=== PATIENT | female | born 1950 | race American Indian/Alaskan Native ===

== ENCOUNTER 2018-02-08 22:16 | Emergency (ER) | payer MEDICARE ==
[2018-02-08 22:33] VITALS: TEMP 97.9
--- NOTE | 2018-02-08 23:12 | ED PDOC ---
Arrival/HPI - General Chief Complaint: Substance Abuse Time Seen by Provider: 02/08/18 22:26 - History of Present Illness Narrative History of Present Illness (Text): 02/08/18 23:05 A 67 year old female, with unknown past medical history, presents to the emergency department for AMS. Patient admits to sniffing 1 bag of heroin tonight. Limited HPI and ROS due to patient's AMS. No PMD Past Medical History - Provider Review Nursing Documentation Reviewed: Yes - Psychiatric Hx Substance Use: No Family/Social History - Physician Review Nursing Documentation Reviewed: Yes Family/Social History: No Known Family HX Smoking Status: Unknown If Ever Smoked Hx Alcohol Use: No Hx Substance Use: No Allergies/Home Meds Allergies/Adverse Reactions: Allergies Unobtainable Allergy (Verified 02/08/18 22:30) Home Medications: Home Meds Medication Instructions Recorded Confirmed Unobtainable 02/09/18 02/09/18 Review of Systems - Review of Systems Systems not reviewed;Unavailable: Altered Mental Status Physical Exam Vital Signs Reviewed: Yes Vital Signs Temp Pulse Resp BP Pulse Ox 02/09/18 05:29 68 20 112/78 99 02/09/18 01:15 75 18 116/70 100 02/08/18 22:30 97.9 F 81 16 134/85 99 Temperature: Afebrile Blood Pressure: Normal Pulse: Regular Respiratory Rate: Normal Appearance: Positive for: Well-Appearing, Non-Toxic, Comfortable Pain Distress: None Mental Status: Positive for: Lethargic - Systems Exam Head: Present: Atraumatic, Normocephalic Pupils: Present: Pinpoint Respiratory/Chest: Present: Clear to Auscultation, Good Air Exchange. No: Respiratory Distress, Accessory Muscle Use Cardiovascular: Present: Regular Rate and Rhythm, Normal S1, S2. No: Murmurs Abdomen: No: Tenderness, Distention, Peritoneal Signs Upper Extremity: Present: Normal Inspection. No: Cyanosis, Edema Lower Extremity: Present: Normal Inspection. No: Edema Neurological: Present: GCS=15, CN II-XII Intact, Speech Normal Skin: Present: Warm, Dry, Normal Color. No: Rashes Psychiatric: Present: Lethargic Medical Decision Making ED Course and Treatment: 02/08/18 23:07 Impression: 67 year old female brought in for AMS after sniffing 1 bag of heroin this evening. Plan: -- Reassess and disposition Progress Notes: - Scribe Statement The provider has reviewed the documentation as recorded by the Meir Carcamo Provider Scribe Attestation: All medical record entries made by the Christinaibe were at my direction and personally dictated by me. I have reviewed the chart and agree that the record accurately reflects my personal performance of the history, physical exam, medical decision making, and the department course for this patient. I have also personally directed, reviewed, and agree with the discharge instructions and disposition. Disposition/Present on Arrival - Present on Arrival Any Indicators Present on Arrival: No History of DVT/PE: No History of Uncontrolled Diabetes: No Urinary Catheter: No History of Decub. Ulcer: No History Surgical Site Infection Following: None - Disposition Have Diagnosis and Disposition been Completed?: Yes Diagnosis: Heroin abuse Disposition: HOME/ ROUTINE Disposition Time: 02:00 Condition: IMPROVED Discharge Instructions (ExitCare): Drug Abuse and Drug Addiction (DC) Additional Instructions: AZIZA MOCK, thank you for letting us take care of you today. Your provider was Matthew Shaikh DO and you were treated for SUBSTANCE ABUSE. The emergency medical care you received today was directed at your acute symptoms. If you were prescribed any medication, please fill it and take as directed. It may take several days for your symptoms to resolve. Return to the Emergency Department if your symptoms worsen, do not improve, or if you have any other problems. Please contact your doctor or call one of the physicians/clinics you have been referred to that are listed on the Patient Visit Information form that is included in your discharge packet. Bring any paperwork you were given at discharge with you along with any medications you are taking to your follow up visit. Our treatment cannot replace ongoing medical care by a primary care provider outside of the emergency department. Thank you for allowing the [facility] team to be part of your care today. Follow up with your primary care doctor or our clinic this week for re- evaluation and further management. Referrals: [facility] [Outside] - Follow up with primary Shanel Hernandez MD [Staff Provider] - Follow up with primary Forms: [employer] (Lao)
[2018-02-09 05:30] VITALS: BP 112/78; PULSE 68; RESP 20; O2SAT 99
== END 2018-02-09 05:29 | disposition home or self-care (01) ==
LOC: ED 22:16 → MERGE 22:16 → ED 02-09 05:29
DX: F11.10 Opioid abuse, uncomplicated (principal)